=== PATIENT | female | born 1960 | race African-American/Black ===

== ENCOUNTER 2023-02-16 08:35 | Outpatient (CLI) | payer BC | END 2023-02-16 08:36 | disposition home or self-care (01) | LOC: BICMRI 08:35 | PROVIDERS: ATTEND Neurological Surgery | DX: C72.0 Malignant neoplasm of spinal cord (principal); M47.812 Spondylosis without myelopathy or radiculopathy, cervical region; Z98.890 Other specified postprocedural states | CPT/HCPCS: 70250; 72156; 82565 ==

== ENCOUNTER 2024-02-04 06:51 | Day surgery (SDC) | payer OTHER ==
[2024-02-03 11:55] VITALS: BMI 41.5
[~2024-02-04 06:51] MED LIST: EPINEPHrine 0.3 MG, Dextrose 50% 3 ML in Ophthalmic Irrigation Solution 500 ML IVP SCH
[2024-02-04] MEDS ORDERED: Lidocaine 1% PF 5 ML VIAL ONE (08:01)
[2024-02-04] MEDS ORDERED: Midazolam HCl 2 mg/2 ml Vial ONE (08:01)
[2024-02-04] MEDS ORDERED: PROPOFOL 20 ML ONE (08:01)
[2024-02-04] MEDS ORDERED: fentaNYL PF 100 MCG/2 ML SYRINGE ONE (08:01)
[2024-02-04] MEDS ORDERED: PHENYLephrine 2.5% Ophth Soln 15 ml Bottle ONE (08:02)
[2024-02-04] MEDS ORDERED: Cyclopentolate 1% Opth Drop 2 ML BOT ONE (08:02)
[2024-02-04] MEDS ORDERED: Ondansetron PF 4 MG/2 ML Vial ONE (08:47)
== END 2024-02-04 11:00 | disposition home or self-care (01) ==
LOC: SDC 06:51
PROVIDERS: ATTEND Ophthalmology Retina Specialist
PROC: 08T43ZZ Resection of Right Vitreous, Percutaneous Approach (ICD-10-PCS; principal; 2024-02-04)
PROC: 08NE3ZZ Release Right Retina, Percutaneous Approach (ICD-10-PCS; principal; 2024-02-04)
DX: E11.3521 Type 2 diabetes mellitus with proliferative diabetic retinopathy with traction retinal detachment involving the macula, right eye (principal); I10 Essential (primary) hypertension; Z88.8 Allergy status to other drugs, medicaments and biological substances; Z79.4 Long term (current) use of insulin
CPT/HCPCS: 36416; 67025; 93005; 93010; J0171; J2250; J2405; J2704